=== PATIENT | male | born 1940 | race African-American/Black ===

== ENCOUNTER 2020-10-03 19:43 | Emergency (ER) | payer MEDICARE ==
[~2020-10-03] VITALS: Ht 172.7 cm; Wt 84.0 kg
[~2020-10-03 19:43] MED LIST: BENA20TA10 PO; GLYB5TAB7 PO; METF-414 PO
[2020-10-03 23:08] LABS: BASOPHILS % 1.1 % (0.0-2.0); EOSINOPHILS % 5.2 % (0.0-5.0); HEMATOCRIT. 37.7 % (42.0-52.0); HEMOGLOBIN. 12.6 g/dL (14.0-18.0); LYMPHOCYTES % 39.7 % (20.0-50.0); MEAN CORPUSCULAR HEMOGLOBIN 26.9 pg (28.0-32.0); MEAN CORPUSCULAR VOLUME 80.6 fL (80.0-94.0); MEAN PLATELET VOLUME 8.6 fl (7.4-10.4); MONOCYTES % 6.5 % (2.0-8.0); NEUTROPHILS % 47.5 % (40.0-76.0); PLATELET 211 x1000/uL (130-400); RED BLOOD CELL COUNT 4.68 mill/uL (4.7-6.1); RED CELL DISTRIBUTION WIDTH 13.8 % (11.6-14.6)
[2020-10-03 23:13] LABS: CHLORIDE 105 mEq/L (98-107)
[2020-10-04 01:26] VITALS: BP 123/71
== END 2020-10-04 01:28 | disposition home or self-care (01) ==
LOC: ER 19:43
DX: R07.89 Other chest pain (principal); E11.9 Type 2 diabetes mellitus without complications; I10 Essential (primary) hypertension; E78.00 Pure hypercholesterolemia, unspecified; Z90.89 Acquired absence of other organs
CPT/HCPCS: 36415; 71045; 80053; 83880; 84484; 85025; 93005; 99285